=== PATIENT | male | born 1955 | race Asian ===

== ENCOUNTER 2020-02-19 20:56 | Emergency (ER) | payer OTHER ==
[~2020-02-19] VITALS: Ht 165.1 cm; Wt 49.0 kg
[2020-02-19 21:09] VITALS: Ht 165.1 cm; Wt 49.0 kg
[2020-02-20 00:20] VITALS: BP 109/69
== END 2020-02-20 00:20 | disposition home or self-care (01) ==
LOC: ED 20:56
DX: S51.812A Laceration without foreign body of left forearm, initial encounter (principal); W31.2XXA Contact with powered woodworking and forming machines, initial encounter; Y93.89 Activity, other specified; Y92.89 Other specified places as the place of occurrence of the external cause; Y99.8 Other external cause status
CPT/HCPCS: 90715